=== PATIENT | female | born 1990 | race Caucasian/White ===

== ENCOUNTER 2017-03-07 23:20 | Inpatient (IN) | payer BC ==
[~2017-03-07] VITALS: Ht 177.8 cm; Wt 83.0 kg
[2017-03-07 23:48] VITALS: Ht 177.8 cm; Wt 83.0 kg
[2017-03-07] MEDS ORDERED: PRENTAB26 PO (23:50)
[2017-03-08] MEDS ORDERED: LACTATED RINGER'S 1000ML 1,000 ML IV PRN (02:10)
[2017-03-08] MEDS ORDERED: PENICILLIN G POTASSIUM IV 6 MU in DEXTROSE 5% 250ML 250 ML IV STA (02:18)
[2017-03-08 02:35] LABS: HEMATOCRIT 37.8 % (37-47); MEAN CELL VOLUME 94.3 fL (80-100); MEAN CORPUSCULAR HEMOGLOBIN 33.2 pg (25-34); MEAN CORPUSCULAR HGB CONC 35.2 g/dl (32-36); MEAN PLATELET VOLUME 9.1 fL (7.4-10.4); PLATELET COUNT 184 K/uL (130-400); RED BLOOD COUNT 4.01 M/uL (4.2-5.4); WHITE BLOOD COUNT 14.85 K/uL (4.8-10.8)
[2017-03-08] MEDS: LACTATED RINGER'S 1000ML 1,000 ML IV SCH ×2 (02:44→12:36)
[2017-03-08] MEDS ORDERED: FENTANYL 2MCG/ML ROPIV 1.25MG/ML 100ML BAG EPI ONE (04:03)
[2017-03-08] MEDS ORDERED: BUPIVACAINE 0.25% 30 ML VIAL ONE (04:03)
[2017-03-08] MEDS ORDERED: EpHEDrine SULFATE INJ 50 MG/ML AMP ONE (04:03)
[2017-03-08] MEDS ORDERED: FENTANYL CITRATE INJ 50 MCG/1 ML 2 ML VIAL ONE (04:03)
--- NOTE | 2017-03-08 04:50 | HISTORY & PHYSICAL EXAMINATION ---
DATE OF ADMISSION: 03/08/2017 CHIEF COMPLAINT: Contractions. HISTORY OF PRESENT ILLNESS: The patient is a 26-year-old G1, P0 at 40 weeks and 2 days of gestation who started to feel contractions around 6:00 p.m. last night. They became more regular and painful around 10:00 p.m. She presented to labor and delivery and her cervix was found to be closed and thick. She was left to ambulate about 2 hours and her contractions got more painful and regular. Her cervix changed to 2, 80, -2 with bulging membranes and she was admitted for labor. She denies any leakage of fluid or vaginal bleeding. She reports good movements. Her has been uncomplicated. PAST MEDICAL HISTORY: Unremarkable. The patient denies any medical problems. PAST SURGICAL HISTORY: Dental surgery at age 15. MEDICATIONS: vitamins. ALLERGIES: No known drug allergies. SOCIAL HISTORY: The patient denies smoking, alcohol or drug use. She is and lives with her . She is a physical therapist. GYNECOLOGIC HISTORY: The patient denies any history of STDs including Chlamydia, gonorrhea, herpes. OBSTETRICAL HISTORY: This is her first . LABS: Blood type is O positive, antibody screen negative, rubella titer positive, RPR nonreactive, hepatitis B surface antigen negative. HIV nonreactive. H\T\H was 12/35, platelets 204. Chlamydia, gonorrhea cultures were negative. Urine culture was negative. One-hour Glucola was 78 mg/deciliter and her GBS culture was positive. PHYSICAL EXAMINATION: GENERAL: The patient is alert, oriented x3, not in acute distress. VITAL SIGNS: Stable. Afebrile. CARDIOVASCULAR SYSTEM: S1, S2; RRR. LUNGS: Clear to auscultation bilaterally. ABDOMEN: Soft, gravid, Ortiz 7 to 8-1/2 pounds. EXTREMITIES: Nontender, no edema. PELVIC: Now is 4 cm dilated, 90% effaced, -2 with bulging membranes and vertex. heart rate 140s, category I. Tucker contractions every 3-4 minutes. ASSESSMENT: The patient is a 26-year-old G1, P0 at 40 weeks and 2 days of gestation, presenting in labor. Vital signs stable, afebrile. GBS positive, heart rate reassuring. PLAN: Admit, IV fluids, IV penicillin and expecting management, epidural per patient request for pain and anticipate spontaneous vaginal delivery. MTDD
[2017-03-08] MEDS ORDERED: LACTATED RINGER'S 1000ML 500 ML IV PRN (05:03)
[2017-03-08] MEDS ORDERED: NALOXONE HCL INJ 1 MG in SODIUM CHLORIDE 0.9% 1000ML 1,000 ML IV PRN (05:03)
[2017-03-08] MEDS ORDERED: EpHEDrine SULFATE INJ 50 MG/ML AMP IV PRN (05:15)
[2017-03-08] MEDS ORDERED: NALOXONE HCL INJ 0.4 MG/1 ML VIAL/CARP IV PRN (05:15)
[2017-03-08] MEDS ORDERED: NALBUPHINE HCL INJ 10 MG/ML AMP IV PRN (05:15)
[2017-03-08] MEDS ORDERED: DiphenhydrAMINE HCL 50 MG/ML VIAL IV PRN (05:15)
[2017-03-08] MEDS: PENICILLIN G POTASSIUM IV 3 MU in DEXTROSE 5% 100ML 100 ML IV PRN ×3 (06:24→14:52)
[2017-03-08] MEDS: FENTANYL 2MCG/ML ROPIV 1.25MG/ML 100ML BAG EPI PRN ×3 (07:01→14:55)
[2017-03-08] MEDS ORDERED: OXYTOCIN 30 UNITS/500ML NSS IV ONE (16:46)
[2017-03-08] MEDS ORDERED: METHYLERGONOVINE MALEATE 0.2 MG/ML AMP ONE (17:57)
[2017-03-08] MEDS ORDERED: HYDROCORTISONE ACETATE 25 MG SUPP PR PRN (18:15)
[2017-03-08] MEDS ORDERED: OXYCODONE/ACETAMINOPHEN 5-325 TAB PO PRN (18:15)
[2017-03-08] MEDS ORDERED: SUPERCREAM 0.870 % 15GM JAR EXT PRN (18:15)
[2017-03-08] MEDS ORDERED: LANOLIN OINT EXT PRN ×2 (18:15)
[2017-03-08] MEDS ORDERED: ACETAMINOPHEN/CODEINE 300/30MG TAB PO PRN ×2 (18:15)
[2017-03-08] MEDS ORDERED: OXYTOCIN 30 UNITS/500ML NSS IV PRN (18:15)
[2017-03-08] MEDS ORDERED: METHYLERGONOVINE MALEATE 0.2 MG/ML AMP IM ONE (18:15)
[2017-03-08] MEDS ORDERED: BENZOCAINE 20% AER SPR 82.5 GM CAN EXT PRN (18:15)
--- NOTE | 2017-03-08 18:32 | Anesthesia Procedure Note ---
Anesthesia Epidural Removal Nt Date & Time Mar 08, 2017 at 18:32 Vital Signs Pain Intensity: 0.0 Notes Mental Status: alert / awake / arousable, participated in evaluation Nausea / Vomiting: adequately controlled Pain: adequately controlled Airway Patency, RR, SpO2: stable & adequate BP & HR: stable & adequate Hydration State: stable & adequate Neuraxial Anesthesia: was administered Anesthetic Complications: no major complications apparent, pt satisfied with anesthetic care Epidural: removed without complications, with tip intact
[2017-03-08] MEDS ORDERED: IBUPROFEN 600 MG TAB ONE (19:17)
[2017-03-08 20:40] VITALS: BP 118/72; PULSE 66; TEMP 36.7
[2017-03-08] MEDS: DOCUSATE SODIUM 100 MG CAP PO SCH (21:09)
[2017-03-08 23:30] VITALS: BP 114/64; PULSE 59; TEMP 36.5
--- NOTE | 2017-03-08 23:37 | DELIVERY SUMMARY ---
DATE OF OPERATION: 03/08/2017 DELIVERY NOTE: The patient delivered a live female in the left occiput anterior presentation. There was loose nuchal cord x3, which was easily reduced. Cord was clamped and cut and infant placed on mother's abdomen. Cord blood was obtained. The patient wanted cord blood collection as well. That was also performed. Placenta was spontaneously delivered. Inspection of the placenta showed a grossly normal placenta with a 3-vessel cord. Baby's weight is pending, Apgars 8 and 9. Estimated blood loss is 500 mL Inspection of the perineum showed a midline second-degree laceration, which was repaired in layers with 2-0 Vicryl suture. Rectal exam, post repair, showed good sphincter tone. No sutures are palpated in the rectum. All instruments are removed from the vagina and accounted for x2, including sponges and needles. Baby and mother are doing well in recovery. I attest to the content of the Intraoperative Record and any orders documented therein. Any exceptio ns are noted below.
[2017-03-09 04:40] VITALS: BP 111/71; PULSE 77; TEMP 36.5
[2017-03-09 07:52] VITALS: BP 116/74; PULSE 74; TEMP 36.6; O2SAT 98
[2017-03-09 08:16] LABS: HEMATOCRIT 33.2 % (37-47)
[2017-03-09] MEDS: DOCUSATE SODIUM 100 MG CAP PO SCH ×2 (08:29→19:10)
[2017-03-09] MEDS: PRENATAL VITAMIN TAB PO SCH (08:29)
[2017-03-09] MEDS: FERROUS SULFATE 325 MG TAB PO SCH (08:29)
[2017-03-09] MEDS: IBUPROFEN 600 MG TAB PO PRN (08:30)
[2017-03-09 09:04] VITALS: O2SAT 98
[2017-03-09 11:59] VITALS: BP 128/78; PULSE 73; TEMP 36.7; O2SAT 97
[2017-03-09 16:20] VITALS: BP 126/78; PULSE 71; TEMP 36.6
[2017-03-09] MEDS ORDERED: BISACODYL 5 MG TABEC PO SCH (20:00)
[2017-03-10 00:10] VITALS: BP 126/78; PULSE 74; TEMP 36.6
[2017-03-10] MEDS: IBUPROFEN 600 MG TAB PO PRN ×2 (00:17→08:26)
[2017-03-10] MEDS ORDERED: BISACODYL 10 MG SUPP PR PRN (07:00)
[2017-03-10 07:40] VITALS: BP 121/76; PULSE 80; TEMP 36.8; O2SAT 97
[2017-03-10 07:49] LABS: HEMATOCRIT 35.2 % (37-47); MEAN CELL VOLUME 97.2 fL (80-100); MEAN CORPUSCULAR HGB CONC 34.9 g/dl (32-36); PLATELET COUNT 190 K/uL (130-400); RED BLOOD COUNT 3.62 M/uL (4.2-5.4); WHITE BLOOD COUNT 11.39 K/uL (4.8-10.8)
--- NOTE | 2017-03-10 08:08 | OB/GYN Progress Note ---
FOOD SERVICES MANAGER Progress Note Date of Service: Mar 10, 2017. Patient is seen and examined. She feels well, no complaints. Ambulating without dizziness Voiding without difficulty Tolerating regular diet with out N&V Bleeding is minimal No fever/ chills/ CP/ SOB/ N&V/ Leg pain Breast feeding without problems Date Time Temp Pulse Resp B/P Pulse Ox O2 Delivery O2 Flow Rate FiO2 03/10/17 00:10 Room Air 03/10/17 00:10 36.6 74 16 126/78 Room Air 03/09/17 16:20 Room Air 03/09/17 16:20 36.6 71 18 126/78 Room Air 03/09/17 11:59 36.7 73 20 128/78 97 Room Air 03/09/17 09:04 98 Room Air Test 03/08/17 02:25 03/09/17 07:45 03/10/17 07:36 White Blood Count 14.85 H 11.39 H Red Blood Count 4.01 L 3.62 L Hemoglobin 13.3 11.4 L 12.3 Hematocrit 37.8 33.2 L 35.2 L Mean Corpuscular Volume 94.3 97.2 Mean Corpuscular Hemoglobin 33.2 34.0 Mean Corpuscular Hemoglobin Concent 35.2 34.9 RDW Standard Deviation 43.8 47.6 H RDW Coefficient of Variation 12.7 13.3 Platelet Count 184 190 Mean Platelet Volume 9.1 9.0 PE: General: Alert, orientedx3, NAD Abd: soft, NT, fundus firm, below Umbilicus Perineum intact, Lochia rubra minimal Ext; NT, no edema AP: 26 yo s/p , ppd# 2 VSS Afebrile doing well Continue routine care All questions were answered D/C home /nesting, f/u in office
--- NOTE | 2017-03-10 08:10 | Discharge Instructions ---
Discharge Instructions Date of Service Mar 10, 2017. Admission Reason for Admission: Uterine Contractions Greater Than 20 Wks Gestation Discharge Discharge Diagnosis / Problem: Discharge Goals Goal(s): Routine recovery after delivery Medications Continue Dispensed Medications: supercream, dermaplast, lansinoh Activity Recommendations Activity Limitations: as noted below Lifting Limitations: gradually increase as tolerated Exercise/Sports Limitations: until after follow-up appointment May Resume Sexual Activity: after follow-up appointment Shower/Bathe: no limitations ACTIVITY RECOMMENDATIONS: * Gradual return to full activity over the next 2-3 weeks. * No lifting - nothing heavier than baby over the next 2-3 weeks. * Do not engage in vigorous exercise, sexual activity or sports until cleared by your physician. * Do not drive or operate any motorized equipment until cleared by your physician. * You may shower/bathe daily. BREAST CARE: If you are not breast feeding: * Wear a supportive bra 24 hours a day for one to two weeks. * Avoid stimulating your breasts and nipples as much as possible during the first few weeks after delivery. * When taking a shower, have the warm water hit your back, not breasts. * When your breasts feel full, apply ice packs. Usually three to four times a day helps ease the discomfort. * Take a mild pain medication (Tylenol/Motrin) when you are uncomfortable. If breast feeding: * Use breast milk to lubricate nipples. Lansinoh cream may be used for sore nipples. You do not need to remove cream prior to breast feeding. If using a different brand of cream, check the label for directions regarding removal of cream prior to nursing. * Wear a supportive bra. * If having problems with breasts or breast feeding, call a portrait consultant or your health care provider. EPISIOTOMY CARE: After delivery, if you have an episiotomy (stitches), the following steps will ease discomfort and aid healing. * For the first 24 hours after delivery, place ice packs next to your episiotomy to help reduce swelling. * After the first 24 hour-period, sitz baths, either portable or in the tub, are suggested. A shower with a shower arm sprayed over the episiotomy may be comforting. * Yoly care should be done after each voiding and bowel movement. Squirt warm water from a plastic bottle over the perineum (region of the body between the anus and urinary opening) and pat dry. * Use Dermoplast to ease discomfort. Shake container. [place] directly over the episiotomy. * Place a Tucks on a clean sanitary pad next to your episiotomy. OVER THE COUNTER MEDICATION: * For discomfort or pain, you may use Acetaminophen (Tylenol), Ibuprofen (Advil ), or Naproxen (Aleve) following the package directions. * For constipation you may use Colace following the package directions. SPECIAL CARE INSTRUCTIONS: When you are discharged from the hospital, it is important for you to follow the instructions listed below: * During the first week at home, you should be able to care for yourself and your baby. In addition, the usual light household activities are encouraged. * Limit your activities to the way you feel. Do not try to clean the house or move furniture. Be sensible. * If you actively engage in sports and have done so up until the time of your delivery, you may resume these activities as soon as you feel able. This may take up to one month or even longer. Use good judgment. * Continue to take your vitamins for at least six weeks after the of your baby. * Your diet need not be limited unless you were on a special diet before your delivery. Breast-feeding mothers need around 2500 calories per day and at least 64-80 ounces of fluid per day (8 to 10 glasses). * You should eat foods from the four major food groups. Crash diets or fad diets are to be avoided. Eating lean meats, fresh fruits and vegetables, low-fat dairy products, high fiber foods and a regular exercise program, will help you get back to your pre- weight without putting your health at risk. * Constipation is sometimes a problem after delivery. Take a mild laxative as needed. If breast feeding, Milk of Magnesia is acceptable to use. You may use a suppository or Fleets enema if no episiotomy. * A daily shower or tub bath is suggested. Be sure to thoroughly and gently dry the perineum. * A bloody vaginal discharge will usually continue until around four weeks post . A small amount of bleeding may continue for as long as six weeks. Vaginal discharge changes from the bright red bleeding after delivery to pink then brownish and finally yellowish-pink before becoming white and disappearing. * Bleeding may increase with activity. Your first period may come in 4-8 weeks. If you are breast feeding, your period may be delayed even longer. * Tomas De Castro (sex) can begin whenever both you and your partner feel comfortable and do not have any form of genital infection. It is recommended that you wait until after your return appointment and discuss with your physician. If you have questions, please talk to your health care practitioner. A condom should be used to prevent infection and . * Foreplay, gentle intercourse and lubrication is very important the first several times to prevent pain. A water-based lubricant such as K-Y jelly or Astroglide may be used. * Tampons may be used six weeks after delivery. * Douching should be avoided for 6 weeks after delivery. * If you have RH negative blood and your baby is RH positive, you will receive RHOGAM by injection prior to discharge. The nurse will give you a card to keep with you that has the date and place that you received RHOGAM after delivery. * During your care, you had a Rubella screen done to check for the presence of rubella antibodies in your blood. If your test was negative, you will receive a Rubella vaccine prior to discharge. This vaccine may cause a fever, soreness at the injection site and flu-like symptoms. If these symptoms persist, notify your health care practitioner. is not advised for three months after a Rubella vaccine. There is a higher chance of having a baby with defects if conceived within three months of getting the vaccine. * If you were discharged 24 hours from delivery or before 48 hours: Visiting nurses will come to your home 48 hours after discharge to assess you and your baby. The visiting nurse will meet with you while you are in the hospital to arrange a time and get directions to your home. * Verbalizes understanding of car seat law as reviewed with patient nursing. * Car Seat hand-out given and reviewed with patient by nursing. * Shaken baby information reviewed with patient by nursing. Call you doctor if: * Heavy bleeding (saturating several pads an hour) or passing clots the size of your fist. * A fever >101 degrees F (38.3 degrees C) on two occasions four hours apart and/or chills. * Unusual pain in the pelvic or vaginal areas. * "Baby Blues" lasting longer than two weeks. If you have any questions or concerns, call your health care practitioner at . FOLLOW-UP VISIT: * Please call the office at to schedule a 6 week examination. It is important you keep this appointment. * It is important for you to make arrangements for either yearly or twice yearly check-ups thereafter. . Current Hospital Diet Patient's current hospital diet: Regular OB Diet Discharge Diet Recommended Diet: Regular Diet Pending Studies Studies pending at discharge: no Medical Emergencies . Who to Call and When: Medical Emergencies: If at any time you feel your situation is an emergency, please call 911 immediately. . Non-Emergent Contact Non-Emergency issues call your: Surgeon Call Non-Emergent contact if: temperature is above 100.5, your pain is not controlled, wound has increased drainage . . "Provider Documentation" section prepared by Juan Antonio Stark. . VTE Core Measure Inpt VTE Proph given/why not?: Treatment not indicated
[2017-03-10] MEDS: PRENATAL VITAMIN TAB PO SCH (08:25)
[2017-03-10] MEDS: DOCUSATE SODIUM 100 MG CAP PO SCH (08:25)
[2017-03-10] MEDS: FERROUS SULFATE 325 MG TAB PO SCH (08:25)
[2017-03-10 15:55] VITALS: BP 134/79; PULSE 74; TEMP 36.6
[2017-03-10 18:40] VITALS: BP_DIAS 79; PULSE 74; TEMP 36.6
== END 2017-03-10 18:40 | disposition home or self-care (01) | DRG 775 ==
LOC: C.OPB 23:20 → C.LD 23:20 → C.OPB 03-08 02:12 → C.OBG 03-08 20:36
PROVIDERS: ADMIT Obstetrics & Gynecology; ATTEND Obstetrics & Gynecology
PROC: 10E0XZZ Delivery of Products of Conception, External Approach (ICD-10-PCS; principal; 2017-03-08)
PROC: 0KQM0ZZ Repair Perineum Muscle, Open Approach (ICD-10-PCS; principal; 2017-03-08)
DX: O48.0 Post-term pregnancy (principal); Z37.0 Single live birth; O70.1 Second degree perineal laceration during delivery; O69.81X0 Labor and delivery complicated by cord around neck, without compression, not applicable or unspecified; O99.824 Streptococcus B carrier state complicating childbirth; Z3A.40 40 weeks gestation of pregnancy